=== PATIENT | male | born 1965 | race Caucasian/White ===

== ENCOUNTER 2024-06-17 11:40 | Outpatient (CLI) | payer BC, SELFPAY ==
--- NOTE | 2024-06-17 11:45 | XR_ITS ---
WS: [id number] XR cervical spine 4-5V [id number] REASON FOR EXAM: CERVICALGIA FINDINGS: Mild straightening of the normal lordosis of the cervical spine. No focal vertebral body abnormality. Moderate disc space narrowing C3-C6 with anterior and uncinate osteophytosis. Moderate symmetric narr owing of the neuroforamina bilaterally. This appears most significant at C5-C6. No significant listhesis. XR/XR cervical spine 4-5V [id number] IMPRESSION: Cervical degenerative spondylosis as above.
== END 2024-06-17 11:41 | disposition home or self-care (01) ==
LOC: RAD 11:42
PROVIDERS: Family Provider Electrodiagnostic Medicine; PCP Electrodiagnostic Medicine; Visit Provider Nurse Practitioner Family
DX: M47.892 Other spondylosis, cervical region (principal)
CPT/HCPCS: 72050

== ENCOUNTER → 2024-07-03 15:21 | Outpatient (BNVA) | payer BC, SELFPAY | PROVIDERS: Family Provider Electrodiagnostic Medicine; PCP Electrodiagnostic Medicine; Visit Provider Orthopaedic Surgery | DX: M54.2 Cervicalgia (principal) | CPT/HCPCS: 72050 ==

== ENCOUNTER 2024-10-31 06:55 | Outpatient (RCR) | payer BC, SELFPAY | END 2024-11-07 23:59 | disposition home or self-care (01) | LOC: SPT 06:55 | PROVIDERS: Visit Provider Orthopaedic Surgery | DX: M54.12 Radiculopathy, cervical region (principal); M54.2 Cervicalgia | CPT/HCPCS: 97110; 97140; 97161 ==

== ENCOUNTER 2024-11-08 06:00 | Outpatient (RCR) | payer BC, SELFPAY | END 2024-12-01 08:20 | disposition home or self-care (01) | LOC: SPT 06:00 | PROVIDERS: Visit Provider Orthopaedic Surgery | DX: M54.12 Radiculopathy, cervical region (principal); M54.2 Cervicalgia; G89.29 Other chronic pain | CPT/HCPCS: 97032; 97110; 97140; G0283 ==